=== PATIENT | female | born 1985 | race Caucasian/White ===

== ENCOUNTER → 2021-10-08 09:20 | Outpatient (BNVA) | payer OTHER, SELFPAY | PROVIDERS: Referring Provider Nurse Practitioner Family; Visit Provider Internal Medicine | DX: E03.8 Other specified hypothyroidism (principal); E06.3 Autoimmune thyroiditis; R13.10 Dysphagia, unspecified; E04.1 Nontoxic single thyroid nodule | CPT/HCPCS: 36415; 84439; 84443 ==

== ENCOUNTER 2021-11-26 10:47 | Outpatient (CLI) | payer OTHER, SELFPAY ==
--- NOTE | 2021-11-26 11:00 | US_ITS ---
WS: [id number] THYROID ULTRASOUND HISTORY: Thyroid nodule COMPARISON: None available. Right lobe: 2.7 cm x 1.9 cm x 5.9 cm (w x ap x l). Volume: 15.7 cm3. Mildly enlarged very heterogeneous thyroid. Coarse echotexture with no discrete nodule. The entire gl and is heterogeneous. There is a cystic component within the mid posterior gland measuring 2.5 x 1.0 x 1.6 cm. Left lobe: 2.3 cm x 1.9 cm x 4.8 cm (w x ap x l). Volume: 10.6 cm3. Enlarged heterogeneous gland. No increased vascularity. Isthmus: 0.7 cm. Small benign-appearing cervical chain lymph nodes. US/US thyroid [id number] IMPRESSION: 1. Enlarged heterogeneous thyroid. There are no focal nodules which are suspic ious and need fine needle aspiration. 2. No significant lymphadenopathy.
== END 2021-11-26 10:48 | disposition home or self-care (01) ==
LOC: RAD 10:49
PROVIDERS: Visit Provider Internal Medicine
DX: E03.8 Other specified hypothyroidism (principal); E04.1 Nontoxic single thyroid nodule; E06.3 Autoimmune thyroiditis; R13.10 Dysphagia, unspecified
CPT/HCPCS: 76536